=== PATIENT | male | born 1985 | race African-American/Black ===

== ENCOUNTER 2022-05-03 23:57 | Emergency (ER) | payer SELFPAY ==
[2022-05-04] MEDS ORDERED: HYDROcodone/Acetaminophen 5/325 mg Tablet ONE (00:39)
== END 2022-05-04 01:46 | disposition home or self-care (01) ==
LOC: CSHERS 23:57
DX: S93.602A Unspecified sprain of left foot, initial encounter (principal); F17.210 Nicotine dependence, cigarettes, uncomplicated; X58.XXXA Exposure to other specified factors, initial encounter

== ENCOUNTER 2022-11-29 04:01 | Emergency (ER) | payer SELFPAY ==
[2022-11-29] MEDS ORDERED: Acetaminophen 500 MG TAB ONE (04:52)
== END 2022-11-29 04:55 | disposition home or self-care (01) ==
LOC: CSHERS 04:01
DX: M25.551 Pain in right hip (principal); M79.604 Pain in right leg; F17.290 Nicotine dependence, other tobacco product, uncomplicated

== ENCOUNTER 2023-09-29 23:24 | Emergency (ER) | payer SELFPAY | END 2023-09-30 01:23 | disposition home or self-care (01) | LOC: CSHERS 23:24 | DX: K03.81 Cracked tooth (principal); K08.89 Other specified disorders of teeth and supporting structures; F17.210 Nicotine dependence, cigarettes, uncomplicated; Z55.6 Problems related to health literacy | CPT/HCPCS: 99282 ==

== ENCOUNTER 2023-10-20 20:03 | Emergency (ER) | payer BC, SELFPAY | END 2023-10-20 20:40 | disposition home or self-care (01) | LOC: CSHERS 20:03 | DX: Z00.00 Encounter for general adult medical examination without abnormal findings (principal) | CPT/HCPCS: 99282 ==

== ENCOUNTER 2025-05-09 13:53 | Emergency (ER) | payer OTHER ==
[2025-05-09] MEDS ORDERED: Ibuprofen 200 MG TAB ONE (15:14)
[2025-05-09] MEDS ORDERED: PROPOFOL 20 ML ONE (17:56)
[2025-05-09 20:36] LABS: #Basophils Less than 0.03 10x3/uL (0.0-0.2); #Eosinophils 0.22 10x3/uL (0.0-0.5); #Monocytes 0.47 10x3/uL (0.0-1.1); #Neutrophils 3.57 10x3/uL (1.5-8.4); %Basophils 0.1 % (0.0-2.0); %Eosinophils 3.2 % (0.0-6.0); %Lymphocytes 37.4 % (18.0-47.0); %Monocytes 6.9 % (0.0-10.0); %Neutrophils 52.1 % (40.0-75.0); Hematocrit 47.6 % (38.8-50.0); Hemoglobin 15.8 g/dL (13.5-17.5); Mean Corpuscular Hemoglobin 30.0 pg (27.0-33.0); Mean Corpuscular Volume 90.3 fL (81.2-95.1); Platelet Count 242 10x3/uL (150-450); Red Blood Cell (RBC) Count 5.27 10x6/uL (4.32-5.72); White Blood Cell (WBC) Count 6.85 10x3/uL (3.5-10.5)
[2025-05-09 20:52] LABS: ALT (SGPT) 10 U/L (Less than 45); AST (SGOT) 26 U/L (11-34); Albumin 4.3 g/dL (3.1-4.5); Alkaline Phosphatase 111 U/L (40-110); Anion Gap 14 mmol/L (10-20); BUN (Urea Nitrogen) 13 mg/dL (8.9-20.6); Bilirubin, Total 0.5 mg/dL (0.3-1.2); Calc. Creatinine Clearance 0 mL/min (70-130); Calcium 10.0 mg/dL (7.8-10.44); Carbon Dioxide 25 mmol/L (22-29); Chloride 105 mmol/L (98-107); Globulin 3.7 g/dL (2.4-3.5); Glucose 99 mg/dL (70-105); Potassium 3.6 mmol/L (3.5-5.1); Sodium 140 mmol/L (136-145)
== END 2025-05-09 20:58 | disposition short-term general hospital (02) ==
LOC: CSHERS 13:53
DX: S43.015A Anterior dislocation of left humerus, initial encounter (principal); F17.210 Nicotine dependence, cigarettes, uncomplicated; X50.1XXA Overexertion from prolonged static or awkward postures, initial encounter
CPT/HCPCS: 23650; 36415; 80053; 85025; 94760; 96374; 99152; J2704; J3010